=== PATIENT | male | born 1960 | race Caucasian/White ===

== ENCOUNTER 2020-03-17 15:12 | Emergency (ER) | payer OTHER ==
[~2020-03-17] VITALS: Ht 172.7 cm; Wt 80.7 kg
[2020-03-17] MEDS ORDERED: HYDR-4384 PO (16:14)
[2020-03-17] MEDS ORDERED: METF-442 PO (16:14)
[2020-03-17] MEDS ORDERED: MELO-107 PO (16:14)
[2020-03-17] MEDS ORDERED: NAPR220C15 PO (16:14)
--- NOTE | 2020-03-17 16:22 | NUR ---
PATIENT WAS MSE BY DR CARDOSO IN ROOM 04B.
[2020-03-17] MEDS ORDERED: VANCOMYCIN IV 1,000 MG in IV DEXTROSE 5% 250 ML IV ONE (16:30)
[2020-03-17] MEDS ORDERED: VANCOMYCIN IV 200 ML ONE (16:36)
[2020-03-17 16:38] LABS: BASOPHILS # (AUTO) 0.1 K/uL (0.0-8.0); BASOPHILS % (AUTO) 0.6 % (0.0-2.0); EOSINOPHILS # (AUTO) 0.4 K/uL (0.0-0.7); EOSINOPHILS % (AUTO) 3.2 % (0.0-7.0); HEMATOCRIT 36.1 % (36.7-47.1); LYMPHOCYTES # (AUTO) 2.3 K/uL (20.0-40.0); LYMPHOCYTES % (AUTO) 16.4 % (20.5-51.5); MEAN CORPUSCULAR HGB CONC 33 g/dL (32.5-36.3); MONOCYTES # (AUTO) 0.7 K/uL (2.0-10.0); MONOCYTES % (AUTO) 4.8 % (0.0-11.0); NEUTROPHILS # (AUTO) 10.5 K/uL (1.8-8.9); PLATELET COUNT (AUTO) 769 K/uL (152-348); RED BLOOD CELL COUNT(AUTO) 4.01 MIL/uL (4.06-5.63); WHITE BLOOD COUNT (AUTO) 13.9 K/uL (3.6-10.2)
[2020-03-17] MEDS ORDERED: IV NORMAL SALINE 250 ML IV ONE (16:48)
[2020-03-17] MEDS ORDERED: IOHEXOL 300MG/ML 100 ML INFUS..BTL ONE (16:48)
[2020-03-17] MEDS ORDERED: SWABABLE VALVE TRANSFER SET EA MC ONE (16:48)
[2020-03-17 16:57] LABS: CREATININE 1.4 mg/dL (0.6-1.3); POTASSIUM 4.8 mmol/L (3.5-5.1)
[2020-03-17 17:09] LABS: BILIRUBIN,DIRECT 0.1 mg/dL (0.0-0.2); BILIRUBIN,TOTAL 0.2 mg/dL (0.2-1.0); TOTAL PROTEIN, SERUM 7.7 g/dL (6.4-8.2)
--- NOTE | 2020-03-17 17:43 | NUR ---
UROLOGY ONCALL CALLED PER DR CARDOSO'S ORDER - DR TALBERT.
--- NOTE | 2020-03-17 18:15 | NUR ---
PATIENT WAS SEEN BY DR TALBERT IN ROOM 04B.
--- NOTE | 2020-03-17 18:24 | NUR ---
DR WILKINSON WAS CALLED FOR CONSULT SPOKE WITH DR TALBERT.
--- NOTE | 2020-03-17 18:27 | NUR ---
DR PEREZ HERE TO SEE PAtient.
[2020-03-17] MEDS ORDERED: CLINDAMYCIN PHOSPHATE IV 900 MG in IV DEXTROSE 5% 100 ML IV ONE (18:30)
--- NOTE | 2020-03-17 18:30 | NUR ---
DR MOREL CALLED SPOKE WITH DR CARDOSO PATIENT OK TO ADMIT.
[2020-03-17 19:51] LABS: *BILIRUBIN,URIN NEGATIVE (NEGATIVE); *BLOOD, URINE 3+ (NEGATIVE); *CLARITY,URINE CLOUDY (CLEAR); *COLOR,URINE YELLOW (YELLOW); *KETONES,URINE NEGATIVE (NEGATIVE); *UROBILINOGEN,URINE 0.2 E.U./dl (NORMAL); LEUKOCYTE ESTERASE ,URINE 3+ (NEGATIVE); NITRITE, URINE NEGATIVE (NEGATIVE); UGLUCOSE NEGATIVE (NEGATIVE)
[2020-03-17 19:57] LABS: BACTERIA,URINE FEW /HPF (NONE SEEN); RBC,URINE 20-50 /HPF (0-3); SQUAMOUS EPITHELIAL CELL,UR FEW /HPF (NONE SEEN); WBC,URINE TNTC /HPF (0-3)
--- NOTE | 2020-03-17 20:00 | NUR ---
Dr. Casillas on the phone with Katina from [place]
--- NOTE | 2020-03-17 20:00 | NUR ---
Andrea ellis in [facility] - 03/17/20 at [id number] Casillas on the phone with Iris from [place]
[2020-03-17] MEDS ORDERED: IV NS 1000 ML 1,000 ML IV PRN (20:06)
[2020-03-17] MEDS ORDERED: PIPERACILLIN/TAZOBACTAM/D5W 50 ML IV ONE (20:10)
[2020-03-17] MEDS ORDERED: MAGNESIUM HYDROXIDE 30 ML LIQUID UDC PO PRN (20:15)
[2020-03-17] MEDS ORDERED: HYDROCODONE/APAP 5-325MG TABLET PO PRN (20:15)
[2020-03-17] MEDS: PIPERACILLIN SODIUM/TAZOBACTAM 3.375 G in IV DEXTROSE 5% 50 ML IV ONE (20:15)
[2020-03-17] MEDS ORDERED: MORPHINE SULFATE 2 MG/1 ML DISP.SYRIN IV PRN (20:15)
[2020-03-17] MEDS ORDERED: ONDANSETRON 4 MG/2 ML VIAL IV PRN (20:15)
[2020-03-17] MEDS ORDERED: Z GUARD REMEDY PASTE 57 GM TUBE TOP PRN (20:15)
[2020-03-17] MEDS ORDERED: ACETAMINOPHEN 325 MG TABLET PO PRN (20:15)
--- NOTE | 2020-03-17 20:37 | NUR ---
Andrea ellis in [facility] - 03/17/20 at 2040 by [id number] Katina ratliff [place] requesting clinicals, faxed over results to [phone]
--- NOTE | 2020-03-17 20:37 | NUR ---
Katina from [place] requesting clinicals, faxed over results to [phone]
[2020-03-17] MEDS ORDERED: CLINDAMYCIN 900MG/D5W 100ML IVPB **ER PYXIS ONLY IJ ONE (20:45)
--- NOTE | 2020-03-17 21:58 | NUR ---
Spoke with TALA from [place] and was informed that patient will be transferred to [facility] in [place]. Informed Dr. Marquez (Urologist) and Dr. Coon (Surgeon budget consultant). Patient made aware. No further concerns at this time
[2020-03-17] MEDS ORDERED: PIPERACILLIN SODIUM/TAZOBACTAM 4.5 G in IV DEXTROSE 5% 50 ML IV SCH (22:00)
--- NOTE | 2020-03-17 23:00 | NUR ---
CALLED [facility] FOR UPDATES, PER REP WILL HAVE [employer] PROGRAMMING PROFESSOR CALL BACK
--- NOTE | 2020-03-17 23:27 | NUR ---
Patient will be transferred to [address] Spoke with ARMANI PANG and gave report at phone number [phone]
--- NOTE | 2020-03-18 00:31 | NUR ---
Patient awake A&O x4.Breathing even and unlabored. denies any pain or discomfort at this time. NAD noted
--- NOTE | 2020-03-18 01:04 | NUR ---
Patient Tranfers to outside Facility Physician: Dr. Ding Location: [facility]) All belongings with patient. Patient taken by [facility] #[id number] in stable condition
== END 2020-03-18 01:04 | disposition short-term general hospital (02) ==
LOC: ER 15:14
DX: N49.2 Inflammatory disorders of scrotum (principal); N39.0 Urinary tract infection, site not specified; N21.0 Calculus in bladder; N17.0 Acute kidney failure with tubular necrosis; E87.1 Hypo-osmolality and hyponatremia; D63.8 Anemia in other chronic diseases classified elsewhere; M16.11 Unilateral primary osteoarthritis, right hip; E11.9 Type 2 diabetes mellitus without complications; Z79.84 Long term (current) use of oral hypoglycemic drugs
CPT/HCPCS: 36415; 51702; 71045; 74177; 80048; 80076; 81001; 85025; 85730; 87086; 93005; 96365; 96366; 96367; 99285; J2543; J3370; J3490; Q9967; A4663; J7050